=== PATIENT | male | born 1990 | race Caucasian/White ===

== ENCOUNTER 2019-05-07 01:36 | Emergency (ER) | payer MEDICAID ==
[~2019-05-07] VITALS: Ht 175.3 cm; Wt 90.7 kg
[2019-05-07 01:36] VITALS: BP_SYST 129
--- NOTE | 2019-05-07 01:36 | NUR ---
Placed in room 03 . Placed on top collar maker, blood pressure machine and pulse oximeter. To gown for exam. Side rails up. Report given to PURNIMA NOBLE
--- NOTE | 2019-05-07 01:47 | NUR ---
PATIENT ARRIVED [facility] TRANSPORT [facility] COMPLAINING OF LEFT SIDED CHEST PAIN RADIATING TO LEFT ARM NON PROVOKED. DENIES ANY NAUSEA, VOMITING OR DIARRHEA, DENIES ANY DRUG USE. DENIES ANY SHORTNESS OF BREATH. DENIES ANY COUGH. PAIN 0/10. PATIENT ARRIVED WITH 20 ANGIOCATH TO LEFT AC AND WAS GIVEN 162 MG OF ASPIRIN AND 1 SPRAY OF NITRO WITH MILD RELIEF. MOTHER AT BEDSIDE. PATIENT AAOX4. NO OTHER COMPLAINTS/INJURIES PER PATIENT OR NOTED. WILL CONTINUE TO MONITOR.
--- NOTE | 2019-05-07 01:50 | NUR ---
ER MD Currie at bedside for medical evaluation.
--- NOTE | 2019-05-07 02:00 | NUR ---
Pt resting comfortably in bed, no signs of acute distress. Will cont. to monitor.
[2019-05-07 02:24] LABS: BASOPHILS % (AUTO) 0.6 % (0.0-2.0); EOSINOPHILS # (AUTO) 0.2 K/uL (0.0-0.4); EOSINOPHILS % (AUTO) 2.5 % (0.0-4.0); HEMOGLOBIN 13.9 g/dL (14.0-18.0); LYMPHOCYTES # (AUTO) 2.1 K/uL (1.0-5.5); MEAN CORPUSCULAR HEMOGLOBIN 27 pg (27-31); MEAN CORPUSCULAR HGB CONC 33 % (32-36); MEAN CORPUSCULAR VOLUME 82 fL (79.0-98.0); MONOCYTES # (AUTO) 0.5 K/uL (0.0-1.0); MONOCYTES % (AUTO) 8.2 % (1.7-9.3); NEUTROPHILS # (AUTO) 3.5 K/uL (1.8-7.7); NEUTROPHILS % (AUTO) 55.7 % (40.0-70.0); PLATELET COUNT (AUTO) 203 K/uL (130-430); RED CELL DISTRIBUTION WIDTH 13.7 % (9.0-15.0); WHITE BLOOD COUNT (AUTO) 6.3 K/uL (4.8-10.8)
[2019-05-07 02:35] LABS: CALCIUM 8.6 mg/dL (8.4-11.0); CREATININE 0.82 mg/dL (0.55-1.30); POTASSIUM 3.6 mmol/L (3.5-5.1)
[2019-05-07 02:42] LABS: ALBUMIN 3.6 g/dL (3.4-4.8); TOTAL BILIRUBIN 0.4 mg/dL (0.0-1.0)
[2019-05-07] MEDS ORDERED: ASPIRIN 325 MG TABLET PO ONE (02:45)
--- NOTE | 2019-05-07 06:13 | NUR ---
Patient given written and verbal discharge instructions and verbalizes understanding. ER MD Dr. Currie discussed with patient the results and treatment provided. Patient in stable condition. ID arm band removed. Patient educated on pain management and to follow up with PMD. Pain Scale 0/10. Opportunity for questions provided and answered. Medication side effect fact sheet provided.
[2019-05-07 06:30] VITALS: BP_SYST 129
== END 2019-05-07 06:30 | disposition home or self-care (01) ==
LOC: SED 01:36
DX: R07.89 Other chest pain (principal)
CPT/HCPCS: 36415; 71045; 80053; 82550-TC; 83880; 84484; 85025; 85379; 93005; 99284